=== PATIENT | male | born 1975 | race Caucasian/White ===

== ENCOUNTER 2017-05-18 17:12 | Emergency (ER) | payer BC ==
[~2017-05-18] VITALS: Ht 175.3 cm; Wt 72.9 kg
[~2017-05-18 17:12] MED LIST: INDOCIN50 MG PO; NAPROSYN500 MG PO; OMEPRAZOLE20 M2 PO; PERCOCET 5/31 TABLET PO; ULTRAM50 MG PO
[2017-05-18 19:07] LABS: HEMATOCRIT 49.6 % (38.0-50.0); HEMOGLOBIN 17.3 G/DL (12.5-16.6); MCH 31.2 PG (29.0-34.0); MCHC 34.9 G/DL (30.0-36.0); MCV 89.5 FL (86-99); PLATELET COUNT 157 K/uL (156-360); RBC DIS.WIDTH-CV 12.4 % (11.8-14.6); RED BLOOD COUNT 5.54 M/uL (4.00-5.50); WHITE BLOOD COUNT 5.2 K/uL (4.1-10.2)
[2017-05-18 19:18] LABS: ALBUMIN 4.3 g/dL (3.2-4.8); CHLORIDE 107 mEq/L (99-109); POTASSIUM 4.2 mEq/L (3.7-5.4); SODIUM 137 mEq/L (136-147)
[2017-05-18 19:21] LABS: GLUCOSE 79 mg/dL (70-99); TOTAL PROTEIN 7.7 g/dL (6.4-8.3)
[2017-05-18 19:23] LABS: TOTAL BILIRUBIN 0.6 mg/dL (0.0-1.0)
[2017-05-18 19:24] LABS: ALKALINE PHOSPHATASE 74 IU/L (3-129); SERUM ETHYL ALCOHOL < 10 mg/dL
[2017-05-18 19:25] LABS: CREATININE 1.1 mg/dL (0.6-1.3); GFR ESTIMATE (CALCULATED) > 59 mL/min/ (58.99-99999)
[2017-05-18 19:26] LABS: AST (GOT) 18 IU/L (2-34); UREA NITROGEN (BUN) 9 mg/dL (9-23)
[2017-05-18 19:27] LABS: ALT (GPT) 28 IU/L (3-49)
[2017-05-18 19:33] LABS: AMPHETAMINE NEGATIVE (500 ng/mL); BARBITURATES NEGATIVE (200 ng/mL); BENZODIAZEPINES NEGATIVE (150 ng/mL); BUPRENORPHINE NEGATIVE (10 ng/mL); COCAINE NEGATIVE (150 ng/mL); METHADONE NEGATIVE (200 ng/mL); METHAMPHETAMINE NEGATIVE (500 ng/mL); OPIATES (MORPHINE) NEGATIVE (100 ng/mL); OXYCODONE NEGATIVE (100 ng/mL); PHENCYCLIDINE NEGATIVE (25 ng/mL); PROPOXYPHENE NEGATIVE (300 ng/mL); THC CANNABINOIDS PRESUMPTIVE POSITIVE (50 ng/mL); TRICYCLIC ANTIDEPRESSANTS NEGATIVE (300 ng/mL)
[2017-05-18] MEDS ORDERED: KEPPRA500 MG PO (21:05)
[2017-05-18 21:40] VITALS: BP 106/63
== END 2017-05-18 21:40 | disposition home or self-care (01) ==
LOC: EME 17:12
PROVIDERS: Emergency Medicine
DX: M54.12 Radiculopathy, cervical region (principal); S40.011A Contusion of right shoulder, initial encounter; W22.8XXA Striking against or struck by other objects, initial encounter; R56.9 Unspecified convulsions; R41.3 Other amnesia; T42.6X1A Poisoning by other antiepileptic and sedative-hypnotic drugs, accidental (unintentional), initial encounter; K21.9 Gastro-esophageal reflux disease without esophagitis; F17.200 Nicotine dependence, unspecified, uncomplicated; Z88.0 Allergy status to penicillin; Z88.8 Allergy status to other drugs, medicaments and biological substances; Z86.711 Personal history of pulmonary embolism; Z86.718 Personal history of other venous thrombosis and embolism
CPT/HCPCS: 72125; 80053; 84999; 85027; 99281; 99285; G0480; J1953; J7050